=== PATIENT | female | born 1980 | race Caucasian/White ===

== ENCOUNTER 2017-11-05 16:36 | Emergency (ER) | payer MEDICAID ==
[2017-11-05 16:37] VITALS: BMI 32.0
[2017-11-05 16:43] VITALS: TEMP 97.6
--- NOTE | 2017-11-05 17:04 | C.PDOC ---
History Of Present Illness Patient presents to ED today with complains of fainting spell today while at work. 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 She states she is , no care and is concerned because she went to urinate and saw some spotting. Denies any injury from fall, back pain, abdominal pain, dizziness, weakness. Her last menses was 09/18/17 and has history of 2 prior pregnancies and c-sections. Time Seen by Provider: 11/05/17 16:55 Chief Complaint (Nursing): Syncope History Per: Patient History/Exam Limitations: no limitations Onset/Duration Of Symptoms: Sudden Onset Past Medical History Reviewed: Historical Data, Nursing Documentation, Vital Signs Vital Signs: Last Vital Signs Temp 97.6 F 11/05/17 16:38 Pulse 61 11/05/17 16:38 Resp 20 11/05/17 16:38 BP 112/57 L 11/05/17 16:38 Pulse Ox 100 11/05/17 18:38 - Medical History PMH: Asthma Surgical History: (2) - [facility] Procedures LOW CERVICAL (03/04/15) Family History: States: No Known Family Hx - Social History Hx Alcohol Use: Yes Hx Substance Use: No - Immunization History Hx Tetanus Toxoid Vaccination: No Hx Influenza Vaccination: No Hx Pneumococcal Vaccination: No Review Of Systems Constitutional: Negative for: Fever Eyes: Negative for: Vision Change Cardiovascular: Negative for: Chest Pain, Palpitations Respiratory: Negative for: Cough, Shortness of Breath Gastrointestinal: Negative for: Abdominal Pain Genitourinary: Positive for: Vaginal Bleeding (spotting) Musculoskeletal: Negative for: Back Pain Neurological: Positive for: Other (syncope). Negative for: Weakness, Headache, Dizziness Physical Exam - Physical Exam Appears: Non-toxic, No Acute Distress Skin: Warm, Dry, No Rash Head: Atraumatic, Normacephalic, No Tenderness, No Swelling Eye(s): bilateral: Normal Inspection, PERRL, EOMI Nose: Normal Oral Mucosa: Moist Neck: Normal, Normal ROM, Supple Cardiovascular: Rhythm Regular, No Murmur Respiratory: Normal Breath Sounds, No Rales, No Rhonchi, No Stridor, No Wheezing Gastrointestinal/Abdominal: Normal Exam, Soft, No Tenderness, No Guarding, No Rebound Back: Normal Inspection, No CVA Tenderness, No Paraspinal Tenderness Extremity: Normal ROM, No Tenderness, No Swelling Neurological/Psych: Oriented x3, Normal Speech, Normal Motor, Normal Sensation Gait: Steady ED Course And Treatment - Laboratory Results Result Diagrams: 11/05/17 17:35 11/05/17 17:35 Lab Interpretation: No Acute Changes ECG: Interpreted By Me, Viewed By Me ECG Rhythm: Sinus Bradycardia ECG Interpretation: No Acute Changes Rate From EC O2 Sat by Pulse Oximetry: 100 (RA) Pulse Ox Interpretation: Normal Medical Decision Making Medical Decision Making: Patient reports she is and passed out today at work. POC was positive. Accucheck was 79. Patient reports feeling well in no distress and does not want any medications. Ordered labs and ultrasound Labs reviewed, unremarkable US shows IUP 7 weeks. Patient remained well in no distress. She is stable for discharge and given follow-up instructions. Disposition Counseled Patient/Family Regarding: Studies Performed, Diagnosis, Need For Followup - Disposition [facility] [Outside] Disposition: HOME/ ROUTINE Disposition Time: 18:40 Condition: STABLE Additional Instructions: Your BHCG today was [id number]. Ultrasound shows you are 7 weeks 5 days . 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 If you do not have landscape crew member follow up in the clinic. 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 - Scribe Statement The provider has reviewed the documentation as recorded by the Scribe Anneliese Byers All medical record entries made by the Scribe were at my direction and personally dictated by me. I have reviewed the chart and agree that the record accurately reflects my personal performance of the history, physical exam, medical decision making, and the department course for this patient. I have also personally directed, reviewed, and agree with the discharge instructions and disposition.
[2017-11-05 17:40] LABS: BASO % 0.4 % (0.0-2.0); EOS % 0.3 % (0.0-4.0); HEMOGLOBIN 12.5 g/dL (11.0-16.0); LYMPH # 2.1 K/uL (1.0-4.3); LYMPH % 21.9 % (20.0-40.0); MEAN CELL VOLUME 85.7 fL (81.0-99.0); MEAN CORPUSCULAR HEMOGLOBIN 29.6 pg (27.0-31.0); MEAN CORPUSCULAR HGB CONC 34.5 g/dL (33.0-37.0); MEAN PLATELET VOLUME 8.4 fL (7.2-11.7); MONO # 0.4 K/uL (0.0-0.8); MONO % 4.4 % (0.0-10.0); RBC 4.23 Mil/uL (3.80-5.20); RED CELL DISTRIBUTION WIDTH 12.4 % (11.5-14.5); WHITE BLOOD COUNT 9.6 K/uL (4.8-10.8)
[2017-11-05 17:52] LABS: ALB/GLOB RATIO 1.3 (1.0-2.1); ALBUMIN 3.9 g/dL (3.5-5.0); ALT/SGPT 17 U/L (9-52); AST/SGOT 17 U/L (14-36); BLOOD UREA NITROGEN 9 mg/dL (7-17); CALCIUM 8.3 mg/dl (8.6-10.4); GFR AFRICAN-AMERICAN > 60; GFR NON-AFRICAN AMERICAN > 60
[2017-11-05 18:37] LABS: SQUAMOUS EPITHIAL 7 /hpf (0-5); URINE BILIRUBIN NEGATIVE (NEGATIVE); URINE BLOOD NEGATIVE (NEGATIVE); URINE CLARITY Clear (Clear); URINE COLOR Yellow (YELLOW); URINE GLUCOSE (UA) NORMAL (Normal); URINE LEUKOCYTE ESTERASE NEG Leu/uL (Negative); URINE NITRATE NEGATIVE (NEGATIVE); URINE PROTEIN NEGATIVE (NEGATIVE); URINE UROBILINOGEN NORMAL mg/dL (0.2-1.0)
--- NOTE | 2017-11-05 18:54 | US ---
EXAM: US First Trimester, Transabdominal CLINICAL HISTORY: 36 years old, female; Signs and symptoms; Lmp or gestational age (in weeks): 09/19/2017; Other: Preg. Pain and spotting; ; Additional info: , fell has pain and spotting TECHNIQUE: Real-time transabdominal obstetrical ultrasound of the maternal pelvis and a first trimester with image documentation. COMPARISON: No relevant prior studies available. FINDINGS: Gestation: Single intrauterine gestational sac. pole with crown-rump length corresponding to estimated menstrual age of 7 weeks 5 days. Cardiac activity with heart rate of 168 beats per minute. Normal yolk sac. Placenta/amniotic fluid: Cannot be adequately evaluated due to the early gestational age. Uterus/cervix: Uterus measures 14.4 x 5.8 x 7.3 CM. No myometrial mass. Ovaries: Right ovary measures 3.4 x 2.3 x 3.7 CM. Left ovary measures 2.5 x 1.3 x 2.5 CM. No mass. Free fluid: No free fluid. IMPRESSION: Single intrauterine at approximately 7 weeks 5 days menstrual age with cardiac activity.
[2017-11-05 19:02] VITALS: BP 101/68; PULSE 57; RESP 18; O2SAT 99
--- NOTE | 2017-11-06 21:56 | CARD ---
APPROVED REPORT EKG Measurement Heart [id number] <Conclusion> Sinus bradycardia. Otherwise normal ECG
== END 2017-11-05 19:02 | disposition home or self-care (01) ==
LOC: C.ER 16:36
DX: O26.891 Other specified pregnancy related conditions, first trimester (principal); R55 Syncope and collapse; Z3A.01 Less than 8 weeks gestation of pregnancy

== ENCOUNTER 2018-10-17 14:37 | Emergency (ER) | payer MEDICAID ==
[2018-10-17 14:37] VITALS: BMI 32.0
[2018-10-17 15:07] VITALS: RESP 20
--- NOTE | 2018-10-17 15:46 | C.PDOC ---
History Of Present Illness 37 y/o female presents to ED complaining of right upper back pain and bilateral ear pain since earlier today. States she has a history of asthma and thinks the back pain might be due to asthma. Otherwise she denies cough, fever, chest pain, SOB, fall, rash, or other physical injuries. Time Seen by Provider: 10/17/18 15:07 Chief Complaint (Nursing): Respiratory Distress History Per: Patient History/Exam Limitations: no limitations Onset/Duration Of Symptoms: Hrs Current Symptoms Are (Timing): Still Present Past Medical History Reviewed: Historical Data, Nursing Documentation, Vital Signs Vital Signs: Last Vital Signs Temp 98 F 10/17/18 15:06 Pulse 66 10/17/18 15:06 Resp 20 10/17/18 15:10 BP 135/88 10/17/18 15:06 Pulse Ox 100 10/17/18 15:06 - Medical History PMH: Asthma Surgical History: (2) - [facility] Procedures LOW CERVICAL (03/04/15) Family History: States: No Known Family Hx - Social History Hx Alcohol Use: Yes Hx Substance Use: No - Immunization History Hx Tetanus Toxoid Vaccination: No Hx Influenza Vaccination: No Hx Pneumococcal Vaccination: No Review Of Systems Except As Marked, All Systems Reviewed And Found Negative. Constitutional: Negative for: Fever ENT: Positive for: Ear Pain (bilaterally) Cardiovascular: Negative for: Chest Pain Respiratory: Negative for: Cough, Shortness of Breath Musculoskeletal: Positive for: Back Pain (right upper) Skin: Negative for: Rash Physical Exam - Physical Exam Appears: Non-toxic, No Acute Distress Skin: Warm, Dry, No Rash Head: Atraumatic, Normacephalic Eye(s): bilateral: Normal Inspection Ear(s): Bilateral: Normal Oral Mucosa: Moist Throat: Normal, No Erythema, No Exudate Neck: Supple Chest: Symmetrical Cardiovascular: Rhythm Regular, No Murmur Respiratory: Normal Breath Sounds, No Rales, No Rhonchi, No Wheezing Back: Other (Mildly tender to palpation at right upper back around T4 level) Extremity: Bilateral: Normal Color And Temperature, Normal ROM Neurological/Psych: Oriented x3, Normal Speech Gait: Steady ED Course And Treatment O2 Sat by Pulse Oximetry: 100 (RA) Pulse Ox Interpretation: Normal - Other Rad CXR X-Ray: Read By Radiologist Interpretation: FINDINGS: LUNGS: No focal consolidation. Please note that chest x-ray has limited sensitivity for the detection of pulmonary masses. PLEURA: No significant pleural effusion identified. No definite pneumothorax . CARDIOVASCULAR: Heart size appears within normal limits. No atherosclerotic calcification present. OSSEOUS STRUCTURES: No acute osseous abnormality identified. VISUALIZED UPPER ABDOMEN: Unremarkable. OTHER FINDINGS: None. IMPRESSION: No focal consolidation identified. Progress Note: Chest x-ray ordered and reviewed. CXR was negative, no infiltrates. Patient was given ibuprofen PO. On re-evaluation, patient is feeling better and tolerating PO. Instructed patient to follow up with PMD in 1- 2 days for further evaluation and to return to ER if symptoms persist. Disposition - Disposition Referrals: [facility] [Outside] Disposition: HOME/ ROUTINE Disposition Time: 16:30 Condition: STABLE Additional Instructions: FOLLOW UP WITH YOUR DOCTOR/CLINIC IN 1-2 DAYS USE MEDICATION NEEDED RETURN TO ER IF SYMPTOMS WORSEN Prescriptions: Naproxen 375 mg PO BID PRN #20 tablet PRN Reason: pain Instructions: Upper Back Pain (DC) Forms: [employer] (Frisian) Print Language: THAI - Clinical Impression Clinical Impression: Thoracic back pain - Scribe Statement The provider has reviewed the documentation as recorded by the Kaci Velazquez Provider Attestation: All medical record entries made by the Kaci were at my direction and personal ly dictated by me. I have reviewed the chart and agree that the record accurately reflects my personal performance of the history, physical exam, medical decision making, and the department course for this patient. I have also personally directed, reviewed, and agree with the discharge instructions and disposition.
--- NOTE | 2018-10-17 16:25 | RAD ---
HISTORY: right upper back pain COMPARISON: No prior. TECHNIQUE: Chest PA and lateral FINDINGS: LUNGS: No focal consolidation. Please note that chest x-ray has limited sensitivity for the detection of pulmonary masses. PLEURA: No significant pleural effusion identified. No definite pneumothorax . CARDIOVASCULAR: Heart size appears within normal limits. No atherosclerotic calcification present. OSSEOUS STRUCTURES: No acute osseous abnormality identified. VISUALIZED UPPER ABDOMEN: Unremarkable. OTHER FINDINGS: None. IMPRESSION: No focal consolidation identified.
[2018-10-17 16:39] VITALS: BP 138/88; PULSE 52; TEMP 97.7
[2018-10-17 17:25] VITALS: O2SAT 100
== END 2018-10-17 16:39 | disposition home or self-care (01) ==
LOC: C.ER 14:37
DX: M54.6 Pain in thoracic spine (principal)